=== PATIENT | female | born 1985 | race Caucasian/White ===

== ENCOUNTER → 2017-03-13 | Outpatient (CLI) | payer BC ==
[~2017-03-13] MED LIST: FAMO-79 PO; no meds per pt.
== END | disposition home or self-care (01) ==
LOC: STAR 14:33
PROVIDERS: ATTEND Obstetrics & Gynecology
DX: Z01.818 Encounter for other preprocedural examination (principal)
CPT/HCPCS: 36415; 84703

== ENCOUNTER 2017-03-17 05:36 | Day surgery (SDC) | payer BC ==
[~2017-03-17] VITALS: Ht 157.5 cm; Wt 98.4 kg
[2017-03-17 06:18] VITALS: BP 138/91
[2017-03-17] MEDS: LACTATED RINGERS 1,000 ML IV SCH ×2 (06:31→06:32)
[2017-03-17 06:32] LABS: HCG UR LOT HCG7030192
[2017-03-17 06:37] LABS: HCG UR OBC PASS
[2017-03-17] MEDS ORDERED: FENTANYL PF 100 MCG/2ML ONE ×3 (06:48→08:41)
[2017-03-17] MEDS ORDERED: MIDAZOLAM 1 MG/ML, 2ML ONE (06:48)
[2017-03-17] MEDS ORDERED: PROPOFOL 10 MG/ML, 20ML ONE (06:49)
[2017-03-17] MEDS ORDERED: ONDANSETRON 2MG/ML, 2ML ONE (06:57)
[2017-03-17] MEDS ORDERED: DEXAMETHASONE 4 MG/ML, 1ML ONE ×2 (06:58)
[2017-03-17] MEDS ORDERED: SILVER NITRATE STICK TP ONE (06:59)
[2017-03-17] MEDS ORDERED: KETOROLAC 30 MG/1 ML ONE (07:15)
[2017-03-17] MEDS ORDERED: MEPERIDINE/PF 25MG/0.5ML IVPush PRN (07:30)
[2017-03-17] MEDS ORDERED: HYDROmorphone 1 MG/ML, 1ML IV PRN (07:30)
[2017-03-17] MEDS ORDERED: OXYcodone 5 MG/5 ML ORAL.SOL UDC PO PRN (07:30)
[2017-03-17] MEDS ORDERED: ONDANSETRON 2MG/ML, 2ML IVPush PRN (07:30)
[2017-03-17] MEDS ORDERED: ACETAMINOPHEN 325 MG TABLET PO PRN (07:30)
[2017-03-17] MEDS ORDERED: PROMETHAZINE 25 MG/ML, 1ML IV PRN (07:30)
[2017-03-17] MEDS ORDERED: ACETAMINOPHEN 650 MG/20.3 ML UDC ONE (08:41)
[2017-03-17] MEDS ORDERED: MEPERIDINE/PF 25MG/0.5ML ONE (08:41)
[2017-03-17] MEDS ORDERED: OXYcodone 5 MG/5 ML ORAL.SOL UDC ONE ×2 (08:42→09:49)
[2017-03-17] MEDS ORDERED: ACETAMINOPHEN 325 MG TABLET ONE (08:42)
[2017-03-17] MEDS: FENTANYL PF 100 MCG/2ML IV PRN ×2 (09:01→09:10)
== END 2017-03-17 12:50 ==
LOC: OUT 05:36
PROVIDERS: ATTEND Obstetrics & Gynecology
DX: D25.0 Submucous leiomyoma of uterus (principal); N93.9 Abnormal uterine and vaginal bleeding, unspecified; N96 Recurrent pregnancy loss; I10 Essential (primary) hypertension; E11.9 Type 2 diabetes mellitus without complications; Z72.89 Other problems related to lifestyle; Z98.890 Other specified postprocedural states
CPT/HCPCS: 58555; 81025; J1100; J1885; J2175; J2250; J2405; J2704; J3010; J7120

== ENCOUNTER 2017-04-09 14:18 | Day surgery (SDC) | payer BC ==
[~2017-04-09] VITALS: Ht 154.9 cm; Wt 98.2 kg
[~2017-04-09 14:18] MED LIST changes: +BUPIVACAINE/PF 0.25% ONE; +EPINEPHRINE 1 MG/ML, 1ML ONE; +SILVER NITRATE STICK TP ONE
[2017-04-09] MEDS ORDERED: LACTATED RINGERS 1,000 ML IV SCH (15:02)
[2017-04-09 15:03] VITALS: BP 131/92
[2017-04-09] MEDS ORDERED: PLEASE ENTER HEIGHT AND WEIGHT MC SCH (15:30)
[2017-04-09] MEDS ORDERED: MIDAZOLAM 1 MG/ML, 2ML ONE (15:47)
[2017-04-09 15:48] LABS: HCG UR LOT HCG7030192
[2017-04-09] MEDS ORDERED: FENTANYL PF 100 MCG/2ML ONE ×3 (15:48→17:02)
[2017-04-09] MEDS ORDERED: PROPOFOL 10 MG/ML, 20ML ONE (15:48)
[2017-04-09] MEDS ORDERED: ONDANSETRON 2MG/ML, 2ML ONE (15:49)
[2017-04-09] MEDS ORDERED: DEXAMETHASONE 4 MG/ML, 1ML ONE ×2 (15:49)
[2017-04-09] MEDS ORDERED: VASOPRESSIN 20 UNIT/ML, 1ML ONE (16:03)
[2017-04-09 16:11] LABS: HCG UR OBC PASS
[2017-04-09] MEDS ORDERED: ONDANSETRON 2MG/ML, 2ML IVPush PRN (16:30)
[2017-04-09] MEDS ORDERED: PROMETHAZINE 25 MG/ML, 1ML IV PRN (16:30)
[2017-04-09] MEDS ORDERED: MEPERIDINE/PF 25MG/0.5ML IVPush PRN (16:30)
[2017-04-09] MEDS ORDERED: HYDROmorphone 1 MG/ML, 1ML IV PRN (16:30)
[2017-04-09] MEDS ORDERED: KETOROLAC 30 MG/1 ML ONE (16:33)
[2017-04-09] MEDS ORDERED: OXYcodone 5 MG/5 ML ORAL.SOL UDC ONE ×2 (17:02→17:17)
[2017-04-09] MEDS ORDERED: ACETAMINOPHEN 650 MG/20.3 ML UDC ONE (17:02)
[2017-04-09] MEDS: FENTANYL PF 100 MCG/2ML IV PRN ×2 (17:05→17:25)
[2017-04-09] MEDS: ACETAMINOPHEN 325 MG TABLET PO PRN ×2 (17:05→17:25)
[2017-04-09] MEDS: OXYcodone 5 MG/5 ML ORAL.SOL UDC PO PRN ×2 (17:05→17:25)
[2017-04-09] MEDS ORDERED: ACETAMINOPHEN 325 MG TABLET ONE (17:18)
[2017-04-09] MEDS ORDERED: DIPHENHYDRAMINE 50 MG/ML, 1ML ONE (17:20)
[2017-04-09] MEDS ORDERED: DIPHENHYDRAMINE 50 MG/ML, 1ML IVPush ONE (18:00)
== END 2017-04-09 20:10 | disposition home or self-care (01) ==
LOC: OR 14:18 → 4NOR 18:03 → OR 20:10
PROVIDERS: ATTEND Obstetrics & Gynecology
DX: D25.0 Submucous leiomyoma of uterus (principal); N93.9 Abnormal uterine and vaginal bleeding, unspecified; Z98.890 Other specified postprocedural states
CPT/HCPCS: 58561; 81025; 88305; J1100; J1200; J1885; J2250; J2405; J2704; J3010; J7120; J0171; J3490

== ENCOUNTER 2018-01-27 12:55 | Emergency (ER) | payer BC ==
[~2018-01-27] VITALS: Ht 154.9 cm; Wt 96.5 kg
[~2018-01-27 12:55] MED LIST changes: -BUPIVACAINE/PF 0.25% ONE; -EPINEPHRINE 1 MG/ML, 1ML ONE; -SILVER NITRATE STICK TP ONE
[2018-01-27] MEDS ORDERED: OXYcodone/APAP 7.5/325MG TABLET ONE (13:17)
[2018-01-27] MEDS ORDERED: LIDOCAINE-MPF 1%, 5ML INFIL ONE (13:30)
[2018-01-27] MEDS ORDERED: OXYcodone/APAP 7.5/325MG TABLET PO ONE (13:30)
[2018-01-27] MEDS ORDERED: LIDOCAINE-MPF 2%, 2ML ONE (14:25)
[2018-01-27 14:44] VITALS: BP 124/75
== END 2018-01-27 15:55 | disposition home or self-care (01) ==
LOC: ED 13:47
DX: O26.892 Other specified pregnancy related conditions, second trimester (principal); L02.31 Cutaneous abscess of buttock; Z3A.19 19 weeks gestation of pregnancy
CPT/HCPCS: 10060; 99283

== ENCOUNTER 2018-02-14 09:33 | Emergency (ER) | payer BC ==
[~2018-02-14] VITALS: Ht 154.9 cm; Wt 97.0 kg
[2018-02-14 09:40] VITALS: BP 101/69
[2018-02-14] MEDS ORDERED: LIDOCAINE-MPF 1%, 5ML ONE (10:38)
[2018-02-14] MEDS ORDERED: OXYcodone/APAP 5/325MG TABLET ONE (10:45)
[2018-02-14] MEDS ORDERED: OXYcodone/APAP 5/325MG TABLET PO ONE (11:00)
== END 2018-02-14 11:56 | disposition home or self-care (01) ==
LOC: ED 10:27
DX: L02.31 Cutaneous abscess of buttock (principal)
CPT/HCPCS: 10060; 99283

== ENCOUNTER 2018-02-16 08:57 | Emergency (ER) | payer BC ==
[~2018-02-16] VITALS: Ht 154.9 cm; Wt 97.7 kg
[2018-02-16 09:00] VITALS: BP 104/70
== END 2018-02-16 09:43 | disposition home or self-care (01) ==
LOC: ED 09:15
DX: Z48.01 Encounter for change or removal of surgical wound dressing (principal)
CPT/HCPCS: 99283

== ENCOUNTER 2018-03-10 08:38 | Emergency (ER) | payer BC ==
[~2018-03-10] VITALS: Ht 154.9 cm; Wt 98.0 kg
[2018-03-10 08:42] VITALS: BP 125/70
[2018-03-10] MEDS ORDERED: LIDOCAINE 1%-EPI 1:100K, 30ML ONE (09:13)
[2018-03-10] MEDS ORDERED: LIDOCAINE 1%-EPI 1:100K, 20ML SQ ONE (10:00)
== END 2018-03-10 09:59 | disposition home or self-care (01) ==
LOC: ED 09:30
DX: L02.31 Cutaneous abscess of buttock (principal); L03.317 Cellulitis of buttock; Z87.440 Personal history of urinary (tract) infections; Z87.42 Personal history of other diseases of the female genital tract
CPT/HCPCS: 10060; 99283